=== PATIENT | male | born 1980 | race Caucasian/White ===

== ENCOUNTER → 2020-02-11 10:52 | Outpatient (CLI) | payer OTHER, SELFPAY ==
--- NOTE | 2020-02-11 | DI.MRI.S_ITS ---
PROCEDURE: MR HEAD/BRAIN WO CON INDICATIONS: Aphasia TECHNIQUE: Noncontrast axial T1 spin echo, axial T2 fast spin echo, sagittal and axial FLAIR, coronal T2 fast spin echo, axial gradient echo, axial diffusion and ADC through the brain. COMPARISON: None. FINDINGS: Image quality: Excellent. CSF Spaces: Basal cisterns are patent. No extra-axial fluid collections. Ventricles are normal in size and shape. Brain: No intracranial masses or hemorrhage. Lainez/white matter interface is normal. Brainstem appears normal. Diffusion-weighted images demonstrate no acute ischemic insult. No chronic ischemic insults. Normal intravascular flow voids are present. Skull and face: Calvarium has normal marrow signal. Orbits appear normal. Sinuses: Sinuses and mastoids are clear. IMPRESSION: Normal for age, source of current symptoms is not found Dictated by: Corey De Leon M.D. on 02/11/2020 at 13:02 Approved by: Corey De Leon M.D. on 02/11/2020 at 13:03
== END ==
PROVIDERS: Referring Provider Naturopath; Visit Provider Naturopath
DX: R47.01 Aphasia (principal)
CPT/HCPCS: 70551